=== PATIENT | male | born 1965 | race Caucasian/White ===

== ENCOUNTER 2017-02-03 15:37 | Emergency (ER) | payer MEDICAID, OTHER ==
[2017-02-03] MEDS ORDERED: Aspirin 81 MG Tab.Chew PO ONE (16:08)
--- NOTE | 2017-02-03 16:11 | EDM.PDOC ---
ED HISTORY OF PRESENT ILLNESS - General Chief Complaint: Chest Pain Stated Complaint: CHEST PAIN/HIGH BP/HEADACHE Time Seen by Provider: 02/03/17 16:00 Source: Reports: Patient, Family, RN notes reviewed History Limitations: Reports: No limitations - History of Present Illness INITIAL COMMENTS - FREE TEXT/NARRATIVE: A 51-year-old gentleman presents emergency department a complaint of chest pressure, he's had chest pressure most of the week chest pressure will get worse with exertion and is relieved by rest he had an episode of nausea and vomiting last night does feel short of breath with exertion no diaphoresis does admit to tobacco products and he is obese no family history of heart disease no history of hypertension VIVI score 1 - Related Data Allergies/ADRs: Allergies Allergy/AdvReac Type Severity Reaction Status Date / Time No Known Allergies Allergy Verified 02/03/17 15:47 Home Meds: Home Meds NK [No Known Home Meds] 02/03/17 [History] Past Medical History - Infectious Disease History Infectious Disease History: Reports: Chicken pox, Measles Social & Family History - Tobacco Use Smoking Status *Q: Current Every Day Smoker Years of Tobacco use: 31 Packs/Tins Daily: 0.5 - Caffeine Use Caffeine Use: Reports: Coffee - Recreational Drug Use Recreational Drug Use: No ED ROS GENERAL - Review of Systems Review Of Systems: See Below Constitutional: Denies: diaphoresis HEENT: Reports: No symptoms Respiratory: Reports: Shortness of Breath Cardiovascular: Reports: Chest pain, Dyspnea on exertion GI/Abdominal: Reports: Nausea, Vomiting : Reports: no symptoms Musculoskeletal: Reports: no symptoms Skin: Reports: no symptoms Neurological: Reports: No Symptoms ED EXAM, GENERAL - Physical Exam Exam: See Below Exam Limited By: No limitations General Appearance: alert, WD/WN, no apparent distress Eye Exam: bilateral eye: normal inspection Ears: normal external exam, normal canal, hearing grossly normal, normal TMs Nose: normal inspection, normal mucosa, no blood Throat/Mouth: Normal inspection, Normal lips, Normal teeth, Normal gums, Normal oropharynx, Normal voice, No airway compromise Head: atraumatic, normocephalic Neck: normal inspection, supple, non-tender, full range of motion Respiratory/Chest: no respiratory distress, lungs clear, normal breath sounds, no accessory muscle use Cardiovascular: regular rate, rhythm, no murmur GI/Abdominal: soft, non tender Extremities: no pedal edema Course - Vital Signs Last Recorded V/S: Last Vital Signs Temp 98.7 F 02/03/17 15:45 Pulse 75 02/03/17 15:45 Resp 19 02/03/17 15:45 BP 123/103 H 02/03/17 15:45 Pulse Ox 94 L 02/03/17 15:45 - Orders/Labs/Meds Orders: Active Orders 24 hr Category Date Time Status Cardiac Monitoring [RC] .As Directed Care 02/03/17 16:08 Active EKG Documentation Completion [RC] ASDIRECTED Care 02/03/17 16:08 Active Chest 2V [CR] Stat Exams 02/03/17 16:08 Taken EKG 12 Lead [EK] Stat Ther 02/03/17 16:08 Ordered Labs: Laboratory Tests 02/03/17 02/03/17 Range/Units 16:08 16:08 WBC 9.8 (4.5-11.0) K/uL RBC 5.23 (4.30-5.90) M/uL Hgb 14.8 (12.0-15.0) g/dL Hct 46.1 (40.0-54.0) % MCV 88 (80-98) fL MCH 28 (27-31) pg MCHC 32 (32-36) % Plt Count 245 (150-400) K/uL Neut % (Auto) 71 H (36-66) % Lymph % (Auto) 18 L (24-44) % [place] % (Auto) 9 H (2-6) % Eos % (Auto) 1 L (2-4) % Baso % (Auto) 1 (0-1) % Sodium 143 (140-148) mmol/L Potassium 3.2 L (3.6-5.2) mmol/L Chloride 103 (100-108) mmol/L Carbon Dioxide 28 (21-32) mmol/L Anion Gap 15.2 H (5.0-14.0) mmol/L BUN 14 (7-18) mg/dL Creatinine 0.7 L (0.8-1.3) mg/dL Est Cr Clr Drug Dosing 131.81 mL/min Estimated GFR (MDRD) > 60 (>60) Glucose 77 (74-106) mg/dL Calcium 8.4 L (8.5-10.1) mg/dL Total Bilirubin 0.3 (0.2-1.0) mg/dL AST 23 (15-37) U/L ALT 29 (12-78) U/L Alkaline Phosphatase 85 (46-116) U/L Troponin I 0.047 (0.000-0.056) ng/mL Total Protein 7.7 (6.4-8.2) g/dL Albumin 3.3 L (3.4-5.0) g/dL Globulin 4.4 H (2.3-3.5) g/dL Albumin/Globulin Ratio 0.8 L (1.2-2.2) Meds: Medications Discontinued Medications Generic Name Dose Route Start Last Admin Trade Name Freq PRN Reason Stop Dose Admin Aspirin 324 mg 02/03/17 16:08 02/03/17 16:11 Aspirin PO 02/03/17 16:09 324 mg ONETIME ONE Administration Departure - Departure Time of Disposition: 17:01 Disposition: Admitted As Inpatient 68 Condition: good Clinical Impression: Chest pain Qualifiers: Chest pain type: unspecified Qualified Code(s): R07.9 - Chest pain, unspecified Forms: ED Department Discharge - My Orders Last 24 Hours: My Active Orders 02/03/17 16:08 Cardiac Monitoring [RC] .As Directed EKG Documentation Completion [RC] ASDIRECTED Chest 2V [CR] Stat EKG 12 Lead [EK] Stat - Assessment/Plan Last 24 Hours: My Active Orders 02/03/17 16:08 Cardiac Monitoring [RC] .As Directed EKG Documentation Completion [RC] ASDIRECTED Chest 2V [CR] Stat EKG 12 Lead [EK] Stat Plan: Assessment Chest pain unclear etiology in patient with known history of tobacco dependence probable underlying hypertension and dyslipidemia Plan Discuss case with hospitalist configuration management administrator he agreed to come and evaluate the CDU will be admitted for chest pain follow troponins and a stress test morning
[2017-02-03 17:27] VITALS: BP 173/112
--- NOTE | 2017-02-03 17:30 | PCM.CONS ---
H&P History of Present Illness - General Date of Service: 02/03/17 Source of Information: Patient, Family History Limitations: Reports: No limitations - History of Present Illness Initial Comments - Free Text/Narative: Germain presents today with a recently one week of a sensation of tightness in his epigastrium and lower chest. The sensation seems to come and go. He does notice that sometimes with activity and sometimes at rest. This is a very mild sensation and he does not call it pain, chest tightness. He has a vigorous job working at a [employer] and is able to perform his work duties without difficulty other than rarely stopping for a moment. Over the past few days he has had an isolated incident of nausea with vomiting and did have some neck pain but these were not happening at the same time and were not associated with chest pressure. He has checked his blood pressure using a home blood pressure cuff and has noted elevations with a systolic pressure as high as 170. He reports that his blood pressure is usually "normal". Has not had any fevers or diarrhea. No complaints of abdominal pain. Appetite has been normal. chest Pain Score (Numeric/FACES): 1 - Related Data Allergies/Adverse Reactions: Allergies Allergy/AdvReac Type Severity Reaction Status Date / Time No Known Allergies Allergy Verified 02/03/17 15:47 Home Medications: Home Meds NK [No Known Home Meds] 02/03/17 [History] Past Medical History - Past Health History Medical/Surgical History: Denies Medical/Surgical History - Infectious Disease History Infectious Disease History: Reports: Chicken pox, Measles Social & Family History - Family History Cardiac: Denies: CAD - Tobacco Use Smoking Status *Q: Current Every Day Smoker Years of Tobacco use: 31 Packs/Tins Daily: 0.5 - Caffeine Use Caffeine Use: Reports: Coffee - Alcohol Use Alcohol Use History: No - Recreational Drug Use Recreational Drug Use: No H&P Review of Systems - Review of Systems: Review Of Systems: See Below Free Text/Narrative: A complete 12 point review of systems was obtained. Pertinent positives and negatives are noted in the history of present illness. All other systems were reviewed and were negative except as noted. Exam - Exam Exam: See Below - Vital Signs Vital Signs: Last Vital Signs Temp 37.1 C 02/03/17 15:45 Pulse 75 02/03/17 15:45 Resp 19 02/03/17 15:45 BP 123/103 H 02/03/17 15:45 Pulse Ox 94 L 02/03/17 15:45 Weight: 127.7 kg - Exam Quality Assessment: No: supplemental oxygen General: alert, oriented, cooperative. No: mild distress HEENT: Conjunctiva clear, Mucosa moist & pink, Posterior pharynx clear. No: Scleral icterus Neck: supple, trachea midline. No: lymphadenopathy, thyromegaly Lungs: Clear to auscultation, Normal respiratory effort Cardiovascular: regular rate, regular rhythm, normal S1, normal S2. No: systolic murmur Abdomen: soft. No: distention, tenderness Back Exam: normal inspection, full range of motion Extremities: normal inspection. No: cyanosis, edema Peripheral Pulses: 2+: dorsalis pedis (L), dorsalis pedis (R) Skin: warm, dry, intact. No: rash Neuro Extensive - Mental Status: alert, oriented x3 Neuro Extensive - Motor, Sensory, Reflexes: CN II-XII intact. No: dysarthria, abnormal motor, tremor Psychiatric: alert, normal affect - Patient Data Lab Results last 24 hrs: Laboratory Results - last 24 hr 02/03/17 02/03/17 Range/Units 16:08 16:08 WBC 9.8 (4.5-11.0) K/uL RBC 5.23 (4.30-5.90) M/uL Hgb 14.8 (12.0-15.0) g/dL Hct 46.1 (40.0-54.0) % MCV 88 (80-98) fL MCH 28 (27-31) pg MCHC 32 (32-36) % Plt Count 245 (150-400) K/uL Neut % (Auto) 71 H (36-66) % Lymph % (Auto) 18 L (24-44) % [place] % (Auto) 9 H (2-6) % Eos % (Auto) 1 L (2-4) % Baso % (Auto) 1 (0-1) % Sodium 143 (140-148) mmol/L Potassium 3.2 L (3.6-5.2) mmol/L Chloride 103 (100-108) mmol/L Carbon Dioxide 28 (21-32) mmol/L Anion Gap 15.2 H (5.0-14.0) mmol/L BUN 14 (7-18) mg/dL Creatinine 0.7 L (0.8-1.3) mg/dL Est Cr Clr Drug Dosing 131.81 mL/min Estimated GFR (MDRD) > 60 (>60) Glucose 77 (74-106) mg/dL Calcium 8.4 L (8.5-10.1) mg/dL Total Bilirubin 0.3 (0.2-1.0) mg/dL AST 23 (15-37) U/L ALT 29 (12-78) U/L Alkaline Phosphatase 85 (46-116) U/L Troponin I 0.047 (0.000-0.056) ng/mL Total Protein 7.7 (6.4-8.2) g/dL Albumin 3.3 L (3.4-5.0) g/dL Globulin 4.4 H (2.3-3.5) g/dL Albumin/Globulin Ratio 0.8 L (1.2-2.2) Result Diagrams: 02/03/17 16:08 02/03/17 16:08 Imaging Impressions last 24 hrs: Chest x-ray - images personally reviewed - no evidence for mass, infiltrate or congestive heart failure EKG - images personally reviewed and interpreted - he is in normal sinus rhythm with a right bundle branch block. Heart rate 75. No acute ischemic changes are noted. There is no EKG available for comparison. Consult PN Assessment/Plan (1) Atypical chest pain SNOMED Code(s): 090534034 Code(s): R07.89 - OTHER CHEST PAIN Current Visit: Yes (2) Tobacco dependence SNOMED Code(s): 70061475 Code(s): F17.200 - NICOTINE DEPENDENCE, UNSPECIFIED, UNCOMPLICATED Current Visit: Yes Problem List Initiated/Reviewed/Updated: Yes Plan: Assessment and plan - Atypical chest pain/tightness - risk factors include being male and tobacco use. Cholesterol status is unknown at this time. No family history. The discomfort is somewhat atypical and has been associated with a rise in his blood pressure from baseline. He does report an excellent functional status with no limitations at work and this is reassuring. We reviewed potential options for further workup including hospital admission for observation versus outpatient management. At this time he would much prefer outpatient management. I believe that he is stable at this time for for outpatient management with atypical chest pain versus possibly a new onset angina. Vital signs are stable enough for outpatient management at this point. -Exercise Cardiolite stress test in the next 2-3 days -Patient was instructed to seek medical attention if he has worsening of his pain or sudden onset of shortness of breath prior to completion of the stress test -I will contact him with stress test results are available later this week Tobacco dependence - no strong interest in quitting at this time. He is aware of the increased risk of heart and lung disease with tobacco use. Mr. Brizuela will be discharged home today. He'll be contacted by cardiac rehabilitation at their earliest convenience to schedule a stress test and I will contact him with results when they are available. Ga Rayo MD Requesting Provider: Officer Date Consult Requested: 02/03/17 Reason for Consult: atypical chest pain Patient History Reviewed: Yes Admission H&P Reviewed: No Notified Requestor: Yes Time Spent (in minutes): 45
--- NOTE | 2017-02-04 09:18 | CR ---
Chest 2V HISTORY: Chest pain COMPARISON: None FINDINGS: Probable benign calcified granuloma in the left costophrenic angle. This measures 4 mm . T his does overlie rib margin. The remainder the lung zones are clear. Cardiac size is borderline enla rged. No focal infiltrates or effusions. Prominent calcification of the anterior margins of the righ t and left first ribs. Impression: No acute infiltrates. Borderline cardiomegaly.
== END 2017-02-03 18:01 | disposition critical access hospital (66) ==
LOC: JP.ED 15:37
DX: R07.9 Chest pain, unspecified (principal); F17.210 Nicotine dependence, cigarettes, uncomplicated
CPT/HCPCS: 36415; 71020; 80053; 84484; 85025; 93005; 99285; A9270